=== PATIENT | female | born 1975 | race Caucasian/White ===

== ENCOUNTER → 2017-02-15 | Day surgery (SDC) | payer OTHER ==
[~2017-02-15] MED LIST: HARD NAILS2500 MCG PO; IBUPROFEN600 MG PO; MULTIVITAMINS1 EAC3 PO; NEXIUM PO
--- NOTE | ~2017-02-15 | OR ---
Unit #: [id number] #: [id number] Patient: BING EDMONDSON [id number] [address] [address] [id number] O MR#: [id number] NAME: BING EDMONDSON. ROOM: Date of Procedure: 02/15/2017 Admission Date: 02/15/2017 Surgeon: Trace Fuller M.D. : 1975 Attending Physician: Trace Fuller M.D. Referring Physician: Trace Fuller M.D. Primary Care Physician: [facility] OPERATIVE REPORT PROCEDURE PERFORMED Colonoscopy with snare polypectomy. INDICATIONS FOR PROCEDURE The patient with acute blood in the stool, undergoing colonoscopy for evaluation. MEDICATIONS Monitored anesthesia. POSTOPERATIVE FINDINGS 1. Colonoscopy to the cecum. Good prep. 2. Rectal polyp, about 5, small, 2-3 mm each, snared and sent for histopathology. 3. Internal hemorrhoids, grade 1-2. PLAN Repeat colonoscopy in 5 years. DESCRIPTION OF PROCEDURE The patient was explained of the procedure, risks, and benefits along with risks and benefits of anesthesia. She was brought to the endoscopy room. Propofol anesthesia was given. Rectal exam was done, which was normal. Colonoscope was lubricated, passed up the rectum, advanced under direct vision all the way to the cecum. Cecum was identified by ileocecal valve and appendiceal orifice. I then started to pull the scope out carefully looking. Findings as described. I retroflexed in the rectum. Small hemorrhoids noted. Gently, the scope was pulled out. She tolerated it well. Dictated by... Yvonne Pina/yadira TD: 02/15/2017 13:42 JOB #: [id number] Unit #: [id number] #: [id number] Patient: BING EDMONDSON OPERATIVE REPORT Page 1 of 1 X Trace Fuller MD PROCEDURE OPERATIVE NOTE
== END | disposition home or self-care (01) ==
LOC: COPS 11:44
DX: K62.1 Rectal polyp (principal); K64.8 Other hemorrhoids; K92.1 Melena; K21.9 Gastro-esophageal reflux disease without esophagitis; J45.909 Unspecified asthma, uncomplicated; F17.200 Nicotine dependence, unspecified, uncomplicated
CPT/HCPCS: 88305